=== PATIENT | male | born 1990 | race Caucasian/White ===

== ENCOUNTER 2017-09-21 11:28 | Day surgery (SDC) | payer OTHER ==
[~2017-09-21] VITALS: Ht 177.8 cm; Wt 65.0 kg
[~2017-09-21 11:28] MED LIST: APRESOLINE25 MG PO; CALPHRON667 MG PO; COZAAR100 MG PO; CYMBALTA30 MG PO; INSULIN PUMP MC; NORMODYNE,TRAN200 MG PO; NORVASC10 MG PO; PROCARDIA XL90 MG PO; REGLAN5 MG PO; RENAL CAPS SOFTG1 MG PO; SYNTHROID75 MCG PO; ZANTAC150 MG PO
[2017-09-21 12:01] LABS: HEMATOCRIT 33.2 % (38.0-50.0); HEMOGLOBIN 10.5 G/DL (12.5-16.6); MCH 28.5 PG (29.0-34.0); MCHC 31.6 G/DL (30.0-36.0); PLATELET COUNT 206 K/uL (156-360); RBC DIS.WIDTH-CV 14.7 % (11.8-14.6); RBC DIS.WIDTH-SD 48.6 % (39-53); RED BLOOD COUNT 3.69 M/uL (4.00-5.50)
[2017-09-21 12:25] VITALS: BP 151/98
[2017-09-21 12:55] LABS: CHLORIDE 98 MEQ/L (99-109); GFR ESTIMATE (CALCULATED) 9 mL/min/ (58.99-99999); GLUCOSE 382 mg/dL (70-99); POTASSIUM 3.9 MEQ/L (3.7-5.4); SODIUM 138 MEQ/L (136-147); UREA NITROGEN (BUN) 59 mg/dL (9-23)
[2017-09-21 17:21] VITALS: BP 120/75
[2017-09-21 18:40] VITALS: BP 107/63
== END 2017-09-21 18:50 | disposition home or self-care (01) ==
LOC: SDC
PROVIDERS: Surgery
DX: I12.0 Hypertensive chronic kidney disease with stage 5 chronic kidney disease or end stage renal disease (principal); E10.22 Type 1 diabetes mellitus with diabetic chronic kidney disease; N18.6 End stage renal disease; Z99.2 Dependence on renal dialysis; Z79.4 Long term (current) use of insulin; Z96.41 Presence of insulin pump (external) (internal); I45.81 Long QT syndrome
CPT/HCPCS: 80048; 82948; 85027; 87641; 93005; J0690; J1170; J1644; J2250; J2405; J2720; S0020